=== PATIENT | female | born 1960 | race Caucasian/White ===

== ENCOUNTER 2018-09-15 09:58 | Observation (INO) | payer OTHER ==
[~2018-09-15] VITALS: Ht 175.3 cm; Wt 97.5 kg
[2018-09-15] VITALS (7 sets, daily range): BP systolic 112–138; BP diastolic 54–86
--- NOTE | ~2018-09-15 | O ---
[facility] [place] [address] OPERATIVE REPORT Name: KIM ELLIOTT Room #: 418-P [facility] Radha MRisa#: [id number] Admission: 09/15/18 ������������������ Attend Phys: Abel Chun MD Discharge: ������������������ Date of : 64 Report #: [id number] THIS REPORT FOR: //name// CC: Abel Mondragon DATE OF SERVICE: 09/15/2018 PREOPERATIVE DIAGNOSIS: ____ abscess. POSTOPERATIVE DIAGNOSIS: Suspected perirectal abscess. PROCEDURE PERFORMED: Evaluation under anesthesia and ____ of the area of suspected perirectal abscess. SURGEON: Dr. Jed Ayala. INDICATION FOR THE PROCEDURE: The patient is a 55-year-old female who presented with complaints of 1-day history of pain in the right perianal region and CT scan that was done showed 1 x 2 cm perirectal abscess. The patient had an evaluation under anesthesia and possible drainage. The patient showed understanding and agreed to proceed. DESCRIPTION OF PROCEDURE: After explaining to the patient in detail, informed consent was obtained. The procedure was done under general anesthesia. I was unable to feel the area of induration both before surgery. The perianal region was prepped and draped in a sterile fashion. I did a digital exam and I was unable to feel any definite areas of induration. The right-sided area where she was mentioning tenderness, I again did not feel any definite induration. I attempted to aspirate this area multiple times, did not obtain any definite pus. Tried to contact the radiologist who reported the possible abscess. At this point, I was unable to get through to him. Therefore, I made 1 cm incision in this area and I probed the right side, to ensure there were no abscess cavities. Thorough saline irrigation of this pocket was given and the wound was packed with 1/2 inch iodoform gauze. Dressing was placed. The patient was stable at the end of the procedure. The patient was awoken from anesthesia and transferred to the recovery room in stable condition. ESTIMATED BLOOD LOSS: Minimal. CONDITION OF THE PATIENT: Stable. FLUIDS GIVEN: Per anesthesia notes. [address] [address] OPERATIVE REPORT Name: KIM ELLIOTT Room #: 418-P ADM Radha Bruce#: [id number] Admission: 09/15/18 ������������������ Attend Phys: Abel Chun MD Discharge: ������������������ Date of : 64 Report #: [id number] SPECIMEN: ____ ��������������������������������������������� ���������������������������������������� By: ��������������������������������������������� [id number] Jamie Adkins MD /nt
[2018-09-15] MEDS ORDERED: SPIRONOLACTONE25 M1 PO (10:21)
[2018-09-15] MEDS ORDERED: ALLEGRA-D 24 H1 EACH PO (10:22)
[2018-09-15] MEDS ORDERED: LEXAPRO 10 MG T10 M1 PO (10:22)
[2018-09-15] MEDS ORDERED: ESTRADIOL 1 MG T1 M1 TRANSDERM (10:23)
[2018-09-15 10:45] LABS: ABSOLUTE NEUTROPHILS 5.5 thou/uL (1.4-8.2); BASOPHILS 0.5 % (0.0-2.0); EOSINOPHILS 0.4 % (0.0-3.0); HEMATOCRIT 37.7 % (37.0-47.0); LYMPHOCYTES 18.8 % (24.0-44.0); MCH 32.2 pg (26.0-34.0); MCHC 34.6 g/dL (28.0-37.0); MONOCYTES 6.4 % (1.0-8.0); PLATELET COUNT 143 thou/uL (150-400); POLYS 73.9 % (36.0-66.0); RBC 4.05 mil/uL (4.20-5.00); RDW 13.3 % (10.5-14.5); WBC 7.4 thou/uL (4.0-11.0)
[2018-09-15 10:45] LABS: URINE BILIRUBIN NEGATIVE (Negative); URINE BLOOD NEGATIVE (Negative); URINE CLARITY CLEAR; URINE COLOR YELLOW; URINE GLUCOSE-RANDOM* NEGATIVE (Negative); URINE KETONES NEGATIVE (Negative); URINE LEUKOCYTES NEGATIVE (Negative); URINE NITRITE NEGATIVE (Negative); URINE PROTEIN (DIPSTICK) NEGATIVE (Negative)
[2018-09-15 10:49] LABS: CALCIUM 9.2 mg/dL (8.5-10.1); CREATININE 0.6 mg/dL (0.6-1.0); POTASSIUM 3.9 mmol/L (3.5-5.1)
[2018-09-15 10:55] LABS: ALBUMIN 3.9 g/dL (3.4-5.0); TOTAL BILIRUBIN 0.7 mg/dL (<0.1-1.0); TOTAL PROTEIN 6.8 g/dL (6.4-8.2)
--- NOTE | 2018-09-15 14:19 | NUR ---
REEIVED PT FROM ER. A/O. RESTING IN BED. ADMISSION ASSESMENT COMPLETED. PAIN MANAGED BY MEDS ORDERED. NO NOTED SOA. NO NV. UP AD KIKA. PT RESTING IN BED. WILL CONT. TO MONITOR. NPO FOR NOW. SUREGERY TO SEE PT.
--- NOTE | 2018-09-16 03:56 | NUR ---
ASSESSMENT COMPLETED. PT IS ALERT AND ORIENTED. UP AD KIKA. PAIN IN THE MENG RECTAL AREA AND THROAT.AFEBRILE. IVF INFUSING VIA RAC. PT DENIES ANY NAUSEA. GIVEN TRAMADOL AND CEPACOL FOR THROAT SORENESS.
[2018-09-16 05:17] VITALS: BP 108/57
[2018-09-16 07:20] VITALS: BP 106/57
[2018-09-16] MEDS ORDERED: LEVAQUIN 750 M750 MG PO (10:19)
[2018-09-16] MEDS ORDERED: TRAMADOL 50 MG50 MG PO (10:20)
[2018-09-16] MEDS ORDERED: FLAGYL500 M1 PO (10:22)
[2018-09-16 10:40] VITALS: BP 106/57
--- NOTE | 2018-09-16 11:27 | NUR ---
DC INSTRUCTIONS GIVEN TO PT. PT VERBALIZED UNDERSTANDING. PT DCD HOME IN STABLE CONDITION.
== END 2018-09-16 11:34 | disposition home or self-care (01) ==
LOC: ER 09:58 → 4E 12:09 → EROBS 12:09 → 4E 13:42 → ENTRNSPT 09-16 11:12 → EDTRNSPTSTS 09-16 11:17 → 4E 09-16 11:34
PROVIDERS: Emergency Medicine; ADMIT Internal Medicine
DX: K61.0 Anal abscess (principal); I10 Essential (primary) hypertension; F41.9 Anxiety disorder, unspecified; T78.40XA Allergy, unspecified, initial encounter; Z88.5 Allergy status to narcotic agent; Z79.899 Other long term (current) drug therapy
CPT/HCPCS: 10084; 50010; 50101; 50386; 62110; 62900; 70005